=== PATIENT | male | born 1955 | race Caucasian/White ===

== ENCOUNTER → 2019-10-15 | Outpatient (CLI) | payer OTHER ==
--- NOTE | 2019-10-15 12:32 | RAD ---
EXAM: Cervical spine, 8 views. HISTORY: Pain. COMPARISON: 06/26/2015. FINDINGS: Frontal, lateral, bilateral oblique, swimmer's and odontoid views of the cervical spine are obtained. There is instrumented intraspinal fusion at C5-C7. There is a disc space fusion device at C6-C7. There is minimal anterolisthesis of C4 on C5. There is multilevel facet arthropathy. No fracture is seen. IMPRESSION: 1. Instrumented fusion at C5-C7. 2. Multilevel facet arthropathy. 3. Minimal anterolisthesis of C4 on C5. Electronically signed by: Leola Dumont MD (10/15/2019 12:29 PM) [id number]
== END ==
LOC: DXRAD 11:07
PROVIDERS: ATTEND Physician Assistant
DX: M47.812 Spondylosis without myelopathy or radiculopathy, cervical region (principal); M43.22 Fusion of spine, cervical region; M50.30 Other cervical disc degeneration, unspecified cervical region
CPT/HCPCS: 72050

== ENCOUNTER → 2019-11-11 | Outpatient (CLI) | payer OTHER ==
--- NOTE | 2019-11-11 14:27 | RAD ---
SHOULDER 2+V RIGHT 11/11/2019 12:00 AM INDICATION: Shoulder pain COMPARISON: None available. TECHNIQUE: 3 views the right shoulder are provided. FINDINGS/ IMPRESSION: 1. Acromioclavicular joint is well aligned with 8 mm separation, borderline. 2. Glenohumeral joint is intact without acute fracture or dislocation. Electronically signed by: Sravani Hinojosa MD (11/11/2019 2:24 PM) [id number]
== END | disposition home or self-care (01) ==
LOC: DXRAD 14:09
PROVIDERS: ATTEND Physician Assistant
DX: S43.101A Unspecified dislocation of right acromioclavicular joint, initial encounter (principal); X58.XXXA Exposure to other specified factors, initial encounter; Y93.89 Activity, other specified; Y92.89 Other specified places as the place of occurrence of the external cause; Y99.8 Other external cause status
CPT/HCPCS: 73030